=== PATIENT | male | born 1975 | race Caucasian/White ===

== ENCOUNTER → 2024-04-12 13:21 | Outpatient (REF) | payer SELFPAY | LOC: HWRAD 13:21 | PROVIDERS: ATTENDING PHYSICIAN Physician Assistant Medical | DX: Z00.00 Encounter for general adult medical examination without abnormal findings (principal); G47.33 Obstructive sleep apnea (adult) (pediatric); E78.2 Mixed hyperlipidemia; Z87.891 Personal history of nicotine dependence | CPT/HCPCS: 75571 ==

== ENCOUNTER → 2024-06-24 06:25 | Outpatient (REF) | payer BC, SELFPAY | LOC: MRI 06:25 | PROVIDERS: ATTENDING PHYSICIAN Orthopaedic Surgery; FAMILY PHYSICIAN Physician Assistant Medical | DX: S46.011A Strain of muscle(s) and tendon(s) of the rotator cuff of right shoulder, initial encounter (principal) | CPT/HCPCS: 73221 ==

== ENCOUNTER → 2025-03-13 14:21 | Outpatient (REF) | payer BC, SELFPAY | LOC: RCS 14:21 | PROVIDERS: ATTENDING PHYSICIAN Internal Medicine Cardiovascular Disease; FAMILY PHYSICIAN Physician Assistant Medical | DX: R07.89 Other chest pain (principal) | CPT/HCPCS: 93017; 93350 ==